=== PATIENT | male | born 1935 | race Caucasian/White ===

== ENCOUNTER → 2017-11-10 | Outpatient (CLI) | payer MEDICARE, BC ==
[~2017-11-10] MED LIST: ACYCLOVIR PO; ASPIR-LOW81 MG PO; ASPIRIN E.C. 8181 MG PO; ATENOLOL25 MG PO; ATORVASTATIN PO; AVODART 0.5MG0.5 MG PO; CARDENE 20MG CA20 M1 PO; CENTRUM SILVER1 TA1 PO; CEPHALEXIN500 M1 PO; CLEOCIN HCL300 MG PO; COQ(10)1010 MG PO; FLOMAX 0.40.4 MG/CAP PO; FLOMAX0.4 MG PO; FLONASE NASAL S16 GM NS; FUROSEMIDE20 MG PO; HYGROTON25 MG PO; ISOSORBIDE30 MG PO; LASIX; NIASPAN750 MG PO; NORCO 325 MG-51 TAB PO; NORCO 325 MG-7.1 TAB PO; RESTASIS0.05% OP; SILVADENE 400G400 GM TP; SINGULAIR 110 MG/TAB PO; SINGULAIR10 MG PO; SYSTANE LUBRICAN5 ML OP; VICODIN 5/5001 UDTAB PO; ZADITOR 5 ML5 ML OP; ZOFRAN ODT4 MG PO
== END ==
LOC: COL.PUL 13:18
DX: R06.02 Shortness of breath (principal)

== ENCOUNTER 2020-11-28 12:56 | Day surgery (SDC) | payer MEDICARE, BC ==
[~2020-11-28] VITALS: Ht 177.8 cm; Wt 93.4 kg
[2020-11-28] VITALS (9 sets, daily range): BP systolic 117–156; BP diastolic 63–97; PULSE 76–96; TEMP 97.4–98.1
[2020-11-28] MEDS ORDERED: HYGROTON 2525 MG/TAB PO (13:57)
[2020-11-28] MEDS ORDERED: K-TAB20 PO (13:58)
[2020-11-28] MEDS ORDERED: FLOMAX 0.40.4 MG/CAP PO (13:59)
[2020-11-28] MEDS ORDERED: DEMADEX 20MG20 M1 PO (13:59)
[2020-11-28] MEDS ORDERED: FAMVIR250 MG PO (14:01)
[2020-11-28] MEDS ORDERED: ZYRTEC 10MG10 MG PO (14:01)
[2020-11-28] MEDS ORDERED: LIPITOR20 MG PO (14:02)
[2020-11-28] MEDS ORDERED: LIPITOR 40MG TA40 MG PO (14:02)
[2020-11-28] MEDS ORDERED: IMDUR 30MG30 MG/TAB PO (14:03)
[2020-11-28] MEDS ORDERED: BLINK TEARS15 ML OP (14:06)
[2020-11-28] MEDS ORDERED: ZADITOR 5 ML5 ML OP (14:09)
[2020-11-28] MEDS ORDERED: FLONASEALLERGY NS (14:14)
[2020-11-28] MEDS ORDERED: COENZYME Q-10100 M1 PO ×2 (14:15→14:16)
[2020-11-28] MEDS ORDERED: ASPIRIN 81M81 MG/TA2 PO ×2 (14:15→14:25)
[2020-11-28] MEDS ORDERED: RESTASIS MULTI5.5 ML OP (14:17)
[2020-11-28] MEDS ORDERED: AVODART 0.5MG0.5 MG PO (14:18)
[2020-11-28] MEDS ORDERED: PYRIDIUM 100MG100 MG PO (16:29)
[2020-11-28] MEDS ORDERED: NORCO 325 MG-51 TAB PO (16:30)
--- NOTE | 2020-11-28 17:30 | NUR ---
Pt arrived to the floor from PACU. He is alert and oriented with no pain complaints. Meyer with CBI running at moderate rate, output clear, CBI slowed down. Ordered pt a clear liquid tray. is present at the bedside. Oriented pt to the room, no other needs, will continue to monitor
--- NOTE | 2020-11-28 19:00 | NUR ---
Output continues to be clear, running at slow rate. Ice to scrotum, tolerated a clear liquid tray, general tray ordered for patient. VSS, no pain complaints. Informed pt if he feels the urge to urinate, to notify nursing. Report given
--- NOTE | 2020-11-28 21:00 | NUR ---
Patient resting in bed. CBI running slow and has light pink drainage. Patient has no complaints of pain at this time. Fluids infusing. Patient states he feels like he needs to pee. Abdomen is not distended and is soft. No other needs. Call light in reach.
[2020-11-29 00:02] VITALS: BP 107/65; PULSE 63; TEMP 97.9
[2020-11-29 04:29] VITALS: BP 103/55; PULSE 70; TEMP 97.8
--- NOTE | 2020-11-29 05:47 | NUR ---
Patient having bloody drainage from hernando drain. Soiled gauze was replaced and new mesh underwear put on. Ice was applied to site throughout the night.
[2020-11-29 07:18] VITALS: BP 107/57; PULSE 70; TEMP 97.9
--- NOTE | 2020-11-29 10:32 | NUR ---
DR. JEFFRIES IN TO SEE PT THIS AM NEW ORDERS RECIEVED ZHANG CATHETER REMOVED BY GLENNA DENNIS STUDENT. PT TOLERATED WELL. SIX BOTTLE ROUTINE STARTED. DRAIN FOR HYDROCELE REMOVED BY PHYSICIAN AND PA STUDENT. PT TOLERATED WELL, CLEAN GAUZE APPLIED.
[2020-11-29 11:19] VITALS: BP 103/54; PULSE 68; TEMP 97.6
--- NOTE | 2020-11-29 11:26 | NUR ---
ESTELA met with the patient and his , Pushpa (ph#[phone]), to discuss discharge plan. The patient lives in [place] with his . He reports independence with ADLs and does not have any DME. The patient's PCP is Dr. Cricket Goodman and he receives his medications from [facility]. He reports no difficulties obtaining his meds. The patient's DPOA-HC is in EMR and it designates his . The patient plans to return home with his upon discharge. No additional needs at this time.
--- NOTE | 2020-11-29 16:57 | NUR ---
DISCHARGE INSTRUCTIONS PROVIDED TO PT AND . PT LEFT FLOOR AMBULATORY.
[2021-05-24] MEDS ORDERED: THE MEDICINE S200 M2 PO (09:27)
== END 2020-11-29 15:05 | disposition home or self-care (01) ==
LOC: SURG 12:56 → SDCO 12:56 → SURG 17:25 → SDCO 18:30 → SURG 11-29 15:05 → SDCO 11-29 15:05
DX: N40.1 Benign prostatic hyperplasia with lower urinary tract symptoms (principal); N39.43 Post-void dribbling; R39.12 Poor urinary stream; R39.14 Feeling of incomplete bladder emptying; R35.1 Nocturia; N43.3 Hydrocele, unspecified; G47.33 Obstructive sleep apnea (adult) (pediatric); E78.5 Hyperlipidemia, unspecified; I10 Essential (primary) hypertension; Z20.822 Contact with and (suspected) exposure to COVID-19; Z79.899 Other long term (current) drug therapy; Z79.82 Long term (current) use of aspirin; Z87.891 Personal history of nicotine dependence; H04.129 Dry eye syndrome of unspecified lacrimal gland
CPT/HCPCS: OP; J0690; J1100; J1170; J2250; J2405; J2704; J3010; J3480; J7120

== ENCOUNTER 2021-04-23 18:47 | Observation (INO) | payer MEDICARE, BC ==
[~2021-04-23] VITALS: Ht 177.8 cm; Wt 86.8 kg
[~2021-04-23 18:47] MED LIST changes: +ASPIRIN 81M81 MG/TA2 PO; +BLINK TEARS15 ML OP; +COENZYME Q-10100 M1 PO; +DEMADEX 20MG20 M1 PO; +FAMVIR250 MG PO; +FLONASEALLERGY NS; +HYGROTON 2525 MG/TAB PO; +IMDUR 30MG30 MG/TAB PO; +K-TAB20 PO; +LIPITOR 40MG TA40 MG PO; +LIPITOR20 MG PO; +PYRIDIUM 100MG100 MG PO; +RESTASIS MULTI5.5 ML OP; +ZYRTEC 10MG10 MG PO
[2021-04-23 20:03] LABS: BASO % 0.5 % (0.0-2.0); EOS # 0.3 (0.0-0.7); GRAN # 5.6 (1.4-6.5); HEMATOCRIT 43.2 % (42.0-52.0); HEMOGLOBIN 14.7 g/dl (13.5-18.0); LYMPH % 23.9 % (20.0-51.0); MEAN CELL VOLUME 89 fl (80.0-100.0); MEAN CORPUSCULAR HEMOGLOBIN 30 pg (27.0-31.0); MEAN CORPUSCULAR HGB CONC 34 g/dl (33.0-37.0); MONO # 0.5 (0.1-0.6); PLATELET COUNT 191 K/mm3 (130-400); RED BLOOD COUNT 4.85 M/mm3 (4.20-5.60); REDCELL DISTRIBUTION WIDTH-CV 13.3 % (11.5-14.5)
[2021-04-23 20:08] LABS: INR 1.1 (0.8-3.0); PROTHROMBIN TIME 11.8 SECONDS (9.7-12.8)
[2021-04-23 20:11] LABS: ALANINE AMINOTRANSFERASE 23 U/L (4-49); ALBUMIN 4.2 gm/dL (3.5-5.0); ALKALINE PHOSPHATASE 89 U/L (50-136); ANION GAP 10 mmol/L (7-16); AST,SGOT 32 U/L (15-37); BILIRUBIN,TOTAL 1.1 mg/dL (0.0-1.0); BLOOD UREA NITROGEN 26 mg/dL (9-20); CALCIUM 9.4 mg/dL (8.4-10.2); CARBON DIOXIDE 29 mmol/L (22-30); CHLORIDE 100 mmol/L (98-107); CREATININE, serum 1.23 (0.66-1.25); GLUCOSE 108 mg/dL (74-106); POTASSIUM 3.4 mmol/L (3.4-5.0); SODIUM 138 mmol/L (137-145); TOTAL PROTEIN 7.9 gm/dL (6.4-8.2)
[2021-04-23 20:41] LABS: COLLECTION METHOD CLEAN CATCH
[2021-04-23 20:53] LABS: TROPONIN-I < 0.012 ng/mL (0.000-0.035)
[2021-04-23 20:56] LABS: MUCOUS Present /lpf; PH 6 (5-8); SQUAMOUS EPITHELIAL 0-2 /hpf; URINE APPEARANCE Clear; URINE BACTERIA None Seen /hpf; URINE BILIRUBIN Negative (NEGATIVE); URINE BLOOD Negative (NEGATIVE); URINE COLOR Yellow; URINE GLUCOSE Negative (NEGATIVE); URINE KETONE Negative (NEGATIVE); URINE LEUKOCYTE ESTERASE Negative (NEGATIVE); URINE NITRATE Negative (NEGATIVE); URINE PROTEIN(semi-quant) Negative (NEGATIVE); URINE RBC 0-2 /hpf; URINE UROBILINOGEN Negative (NEGATIVE)
[2021-04-23] MEDS ORDERED: ASPIRIN 81M81 MG/TA2 PO (22:43)
[2021-04-24] VITALS (8 sets, daily range): BP systolic 105–121; BP diastolic 45–68; PULSE 62–93; TEMP 97.1–98.1
--- NOTE | 2021-04-24 03:05 | NUR ---
PT ARRIVES VIA W/C FROM ED. IS ALERT AND ORIENTED X4.
--- NOTE | 2021-04-24 06:15 | NUR ---
PATIENT IS LAYING IN BED. HAS NOT COMPLAINED OF PAIN THROUGHOUT THE DURATION OF THE NIGHT. NO FURTHER NEEDS AT THIS TIME. WILL REPORT TO DAY SHIFT.
[2021-04-24 07:20] LABS: BASO % 0.3 % (0.0-2.0); EOS # 0.1 (0.0-0.7); EOS % 1.5 % (0-4.0); GRAN % 69.2 % (42.2-75.2); HEMATOCRIT 37.2 % (42.0-52.0); LYMPH # 1.5 (1.2-3.4); LYMPH % 20.1 % (20.0-51.0); MEAN CELL VOLUME 91 fl (80.0-100.0); MEAN CORPUSCULAR HEMOGLOBIN 31 pg (27.0-31.0); MEAN CORPUSCULAR HGB CONC 34 g/dl (33.0-37.0); MEAN PLATELET VOLUME 9.2 fl (7.4-10.4); MONO # 0.6 (0.1-0.6); MONO % 8.6 % (1.7-9.3); PLATELET COUNT 180 K/mm3 (130-400); RED BLOOD COUNT 4.07 M/mm3 (4.20-5.60); REDCELL DISTRIBUTION WIDTH-CV 13.4 % (11.5-14.5)
[2021-04-24 07:22] LABS: HEMOGLOBIN 12.5 g/dl (13.5-18.0)
[2021-04-24 07:54] LABS: CALCIUM 8.8 mg/dL (8.4-10.2); CREATININE, serum 1.11 (0.66-1.25); POTASSIUM 3.8 mmol/L (3.4-5.0)
--- NOTE | 2021-04-24 08:00 | NUR ---
Patient up to restroom with SBA, steady gait. Denies pain at this time. Patient has abrasions to left knee and elbow. As well as abrasions to face with dressings over bridge of nose and lip. Gauze dressing to left upper arm for skin tear. Fluids infusing per orders. Denies needs at this time. No further needs at this time.
[2021-04-24] MEDS ORDERED: FLOMAX 0.40.4 MG/CAP PO (12:32)
[2021-04-24] MEDS ORDERED: HYGROTON 2525 MG/TAB PO (14:33)
[2021-04-24] MEDS ORDERED: CLEOCIN HCL300 MG PO (14:38)
--- NOTE | 2021-04-24 15:22 | NUR ---
plant operations worker met with patient to discuss discharge plan. Patient lives at home with his by [place]. Patient reports to being fully independent and does not use any medical equipment to assist with mobility. PCP is Dr. Goodman and uses [facility] for a pharmacy. Patient states he has a DPOA-HC established and the hospital should have a copy on file. Patient states he has biked at least 5 miles a day for the past 40 years. Has a daughter that lives in [place] and does a lot for him and his . *Discahrge plan: Home with *
--- NOTE | 2021-04-24 18:27 | NUR ---
Patient doing well throughout the day, spouse at bedside today. Has been up to recliner and ambulating in room with steady gait. Dressing to nose and lip changed this afternoon, vasaline gauze and non adhesive dressing placed. Denies needs at this time.
--- NOTE | 2021-04-24 21:50 | NUR ---
Pt. sitting up in bed at this time. Pt. is A&OX3, assessment complete. INT to rt. forearm patent. Dressing to nose CDI. Pt. denies pain or other needs, call light within reach.
[2021-04-25 04:27] VITALS: BP 114/48; PULSE 64; TEMP 98.5
[2021-04-25 07:19] LABS: BASO % 0.5 % (0.0-2.0); EOS # 0.2 (0.0-0.7); EOS % 3.7 % (0-4.0); GRAN # 3.6 (1.4-6.5); GRAN % 60.4 % (42.2-75.2); HEMOGLOBIN 11.7 g/dl (13.5-18.0); LYMPH # 1.6 (1.2-3.4); LYMPH % 26.1 % (20.0-51.0); MEAN CELL VOLUME 90 fl (80.0-100.0); MEAN CORPUSCULAR HEMOGLOBIN 31 pg (27.0-31.0); MEAN CORPUSCULAR HGB CONC 34 g/dl (33.0-37.0); MEAN PLATELET VOLUME 9.3 fl (7.4-10.4); MONO # 0.5 (0.1-0.6); MONO % 9.1 % (1.7-9.3); PLATELET COUNT 165 K/mm3 (130-400); REDCELL DISTRIBUTION WIDTH-CV 13.6 % (11.5-14.5)
[2021-04-25 07:21] LABS: HEMATOCRIT 34.1 % (42.0-52.0)
[2021-04-25 07:24] VITALS: BP 107/52; PULSE 68; TEMP 97.6
[2021-04-25 07:43] LABS: CALCIUM 8.9 mg/dL (8.4-10.2); CREATININE, serum 1.01 (0.66-1.25)
[2021-04-25] MEDS ORDERED: HYGROTON 2525 MG/TAB PO (08:48)
--- NOTE | 2021-04-25 10:20 | NUR ---
Patient doing well this AM. Up ambulating in room with steady gait. Spouse at bedside. Discharge education provided to patient. Educated on when to call provider and all follow up appointments. Patient educated on medication changes. All questions answered. INT discontinued, catheter tip intact. Patient out by wheelchair with surgical staff.
[2021-04-25 17:31] LABS: TB GOLD INTERPRETATION Negative (Negative)
[2021-05-01 09:00] LABS: COCCIDIOIDES AB IGG Negative (Negative); COCCIDIOIDES AB IGM Negative (Negative); COCCIDIOIDES CF Negative (Negative)
[2021-05-24] MEDS ORDERED: THE MEDICINE S200 M2 PO (09:27)
== END 2021-04-25 10:20 | disposition home or self-care (01) ==
LOC: COL.ER 18:47 → SURG 20:33
PROVIDERS: Emergency Medicine; Physician Assistant; Student in an Organized Health Care Education/Training Program; ADMIT Internal Medicine
DX: R55 Syncope and collapse (principal); S02.2XXA Fracture of nasal bones, initial encounter for closed fracture; S01.21XA Laceration without foreign body of nose, initial encounter; S01.81XA Laceration without foreign body of other part of head, initial encounter; E78.5 Hyperlipidemia, unspecified; E87.6 Hypokalemia; I10 Essential (primary) hypertension; R91.8 Other nonspecific abnormal finding of lung field; G47.33 Obstructive sleep apnea (adult) (pediatric); Z20.822 Contact with and (suspected) exposure to COVID-19; N40.0 Benign prostatic hyperplasia without lower urinary tract symptoms; Z66 Do not resuscitate; V19.9XXA Pedal cyclist (driver) (passenger) injured in unspecified traffic accident, initial encounter; Y93.55 Activity, bike riding; Y92.838 Other recreation area as the place of occurrence of the external cause; Z79.899 Other long term (current) drug therapy; Z87.891 Personal history of nicotine dependence; Z23 Encounter for immunization
CPT/HCPCS: G0378; J0696; J3475; J7030

== ENCOUNTER 2021-05-29 09:05 | Outpatient (CLI) | payer MEDICARE, BC ==
[2021-05-29] VITALS (18 sets, daily range): BP systolic 115–182; BP diastolic 50–93; PULSE 61–75; TEMP 97.5
[~2021-05-29] VITALS: Ht 177.8 cm; Wt 94.4 kg
[~2021-05-29 09:05] MED LIST changes: +THE MEDICINE S200 M2 PO
--- NOTE | 2021-05-29 09:55 | NUR ---
pt to ct per wheelchair, pt laying in supine position on ct table, monitors applied and O2 on at 2l/nc.
--- NOTE | 2021-05-29 10:10 | NUR ---
Pt rescanned after changed position.
--- NOTE | 2021-05-29 10:35 | NUR ---
Specimens obtained by Dr Brewster and placed in formalin. Specimen labeled.
== END 2021-05-29 13:50 | disposition home or self-care (01) ==
LOC: COL.RAD 09:05
DX: J98.4 Other disorders of lung (principal); J84.10 Pulmonary fibrosis, unspecified
CPT/HCPCS: J3010

== ENCOUNTER → 2021-10-22 | Outpatient (CLI) | payer MEDICARE, BC ==
[2021-10-22 15:22] LABS: HEMATOCRIT 39.6 % (42.0-52.0); HEMOGLOBIN 13.8 g/dl (13.5-18.0); MEAN CELL VOLUME 85 fl (80.0-100.0); MEAN CORPUSCULAR HEMOGLOBIN 30 pg (27-31); MEAN CORPUSCULAR HGB CONC 35 g/dl (33.0-37.0); MEAN PLATELET VOLUME 9.1 fl (7.4-10.4); PLATELET COUNT 104 K/mm3 (130-400); RED BLOOD COUNT 4.68 M/mm3 (4.20-5.60); REDCELL DISTRIBUTION WIDTH-CV 13.3 % (11.5-14.5)
[2021-10-22 15:37] LABS: ALBUMIN 3.2 gm/dL (3.4-4.8); BILIRUBIN,TOTAL 1.6 mg/dL (0.2-1.2); CALCIUM 9.1 mg/dL (8.4-10.2); CREATININE, serum 1.14 mg/dL (0.72-1.25); POTASSIUM 3.5 mmol/L (3.5-4.5); TOTAL PROTEIN 6.6 gm/dL (6.2-8.1)
[2021-10-22 15:53] LABS: BAND 4 % (0-10); EOSINOPHIL 4 % (0-4); LYMPHOCYTE 67 % (20.0-51.0); NEUTROPHILS 20 % (42.0-75.2)
[2021-10-22 15:54] LABS: PLATELET ESTIMATE DECREASED (NORMAL)
== END ==
LOC: COL.LAB 14:54
DX: C34.91 Malignant neoplasm of unspecified part of right bronchus or lung (principal)

== ENCOUNTER → 2021-10-29 | Outpatient (CLI) | payer MEDICARE, BC ==
[2021-10-29 08:44] LABS: BASO % 0.4 % (0.0-2.0); EOS # 0.1 K/mm3 (0.0-0.7); EOS % 2.3 % (0.0-4.0); GRAN % 39.3 % (42.2-75.2); HEMOGLOBIN 11.6 g/dl (13.5-18.0); LYMPH # 1.2 K/mm3 (1.2-3.4); LYMPH % 47.5 % (20.0-51.0); MEAN CELL VOLUME 85 fl (80.0-100.0); MEAN CORPUSCULAR HEMOGLOBIN 29 pg (27-31); MEAN CORPUSCULAR HGB CONC 34 g/dl (33.0-37.0); MEAN PLATELET VOLUME 9.9 fl (7.4-10.4); MONO # 0.3 K/mm3 (0.1-0.6); MONO % 9.7 % (1.7-9.3); PLATELET COUNT 82 K/mm3 (130-400); RED BLOOD COUNT 3.97 M/mm3 (4.20-5.60); REDCELL DISTRIBUTION WIDTH-CV 13.1 % (11.5-14.5)
[2021-10-29 08:47] LABS: HEMATOCRIT 33.9 % (42.0-52.0)
[2021-10-29 08:59] LABS: ALBUMIN 2.8 gm/dL (3.4-4.8); BILIRUBIN,TOTAL 0.6 mg/dL (0.2-1.2); CALCIUM 8.2 mg/dL (8.4-10.2); CREATININE, serum 0.78 mg/dL (0.72-1.25); MAGNESIUM 1.6 mg/dL (1.6-2.6); POTASSIUM 3.5 mmol/L (3.5-4.5); TOTAL PROTEIN 6.4 gm/dL (6.2-8.1)
== END ==
LOC: COL.LAB 08:04
DX: C34.91 Malignant neoplasm of unspecified part of right bronchus or lung (principal)

== ENCOUNTER → 2022-02-20 | Outpatient (CLI) | payer MEDICARE, BC | LOC: COL.RAD 13:50 | DX: M50.321 Other cervical disc degeneration at C4-C5 level (principal); M48.02 Spinal stenosis, cervical region; M47.812 Spondylosis without myelopathy or radiculopathy, cervical region; C34.91 Malignant neoplasm of unspecified part of right bronchus or lung; M43.6 Torticollis ==

== ENCOUNTER → 2022-09-19 | Outpatient (CLI) | payer MEDICARE, BC | LOC: COL.LAB 14:16 | DX: Z01.89 Encounter for other specified special examinations (principal) ==

== ENCOUNTER 2022-09-20 08:40 | Emergency (ER) | payer MEDICARE, BC ==
[~2022-09-20] VITALS: Ht 170.2 cm; Wt 72.7 kg
[2022-09-20 08:48] VITALS: TEMP 98.5
[2022-09-20 09:44] LABS: BASO % 0.1 % (0.0-2.0); EOS # 0.8 K/mm3 (0.0-0.7); EOS % 7.6 % (0.0-4.0); GRAN # 7.5 K/mm3 (1.4-6.5); GRAN % 76.1 % (42.2-75.2); HEMOGLOBIN 11.2 g/dl (13.5-18.0); LYMPH # 1.3 K/mm3 (1.2-3.4); MEAN CELL VOLUME 93 fl (80.0-100.0); MEAN CORPUSCULAR HEMOGLOBIN 28 pg (27-31); MEAN CORPUSCULAR HGB CONC 30 g/dl (33.0-37.0); MEAN PLATELET VOLUME 9.3 fl (7.4-10.4); MONO # 0.3 K/mm3 (0.1-0.6); MONO % 3.1 % (1.7-9.3); PLATELET COUNT 269 K/mm3 (130-400); RED BLOOD COUNT 3.95 M/mm3 (4.20-5.60)
[2022-09-20 09:49] LABS: HEMATOCRIT 36.9 % (42.0-52.0)
[2022-09-20 10:05] LABS: ALANINE AMINOTRANSFERASE 20 U/L (0-55); ALBUMIN 2.1 gm/dL (3.4-4.8); ALKALINE PHOSPHATASE 66 U/L (40-150); ANION GAP 11 mmol/L (7-16); AST,SGOT 22 U/L (5-34); BILIRUBIN,TOTAL 0.6 mg/dL (0.2-1.2); BLOOD UREA NITROGEN 26 mg/dL (8-26); C-REACTIVE PROTEIN 6.73 mg/dL (0.00-0.50); CARBON DIOXIDE 28 mmol/L (23-31); CHLORIDE 101 mmol/L (98-107); CREATININE, serum 0.71 mg/dL (0.72-1.25); GLUCOSE 137 mg/dL (70-99); LIPASE 45 U/L (8-78); POTASSIUM 4.5 mmol/L (3.5-4.5); SODIUM 140 mmol/L (136-145); TOTAL PROTEIN 6.9 gm/dL (6.2-8.1)
[2022-09-20 10:09] LABS: ERYTHROCYTE SEDIMENTATION RATE 81 mm/hr (0-30)
[2022-09-20 10:11] LABS: TROPONIN-I < 0.010 ng/mL (0.00-0.033)
[2022-09-20 13:50] VITALS: BP 112/58; PULSE 87
== END 2022-09-20 13:50 | disposition short-term general hospital (02) ==
LOC: COL.ER 08:40
PROVIDERS: Emergency Medicine
DX: J18.9 Pneumonia, unspecified organism (principal); J86.9 Pyothorax without fistula; C34.90 Malignant neoplasm of unspecified part of unspecified bronchus or lung; R70.0 Elevated erythrocyte sedimentation rate; Z86.16 Personal history of COVID-19; Z20.822 Contact with and (suspected) exposure to COVID-19
CPT/HCPCS: J2543; J3370; J7050

== ENCOUNTER 2022-10-20 09:50 | Emergency (ER) | payer MEDICARE, BC ==
[~2022-10-20] VITALS: Ht 170.2 cm; Wt 72.7 kg
[2022-10-20 09:56] VITALS: BP 136/70; TEMP 97.4
[2022-10-20 12:15] VITALS: PULSE 97
== END 2022-10-20 12:16 | disposition home or self-care (01) ==
LOC: COL.ER 09:50
DX: K94.23 Gastrostomy malfunction (principal)

== ENCOUNTER 2023-07-25 10:21 | Emergency (ER) | payer MEDICARE, BC ==
[~2023-07-25] VITALS: Ht 170.2 cm; Wt 72.7 kg
[~2023-07-25 10:21] MED LIST changes: +ALL DAY ALLERGY10 M3 PO; +DIFICID200 MG PO; +IPRATROPIUM BROM3 M1 IH; +MELATONIN5 M1 PO; +MIRALAX PA17 GM/Dose PO; +PEPCID 20MG TAB20 MG PO; +PROAIR HFA0.09 MG/AC IH; +RESTASIS 60VL OU; +RESTASIS0.05% OU; +SENNA-S 50 MG-81 TAB PO; +SEROQUEL 2525 MG/TAB PO; +SYSTANE0.3% OU; +TYLENOL 500MG500 MG PO; +ZOFRAN ODT4 MG BC
[2023-07-25 10:29] VITALS: TEMP 97.5
[2023-07-25 12:17] LABS: BASO # 0.1 K/mm3 (0.0-0.2); BASO % 0.6 % (0.0-2.0); EOS # 0.3 K/mm3 (0.0-0.7); EOS % 3.1 % (0.0-4.0); GRAN # 6.6 K/mm3 (1.4-6.5); GRAN % 75.4 % (42.2-75.2); HEMATOCRIT 38.2 % (42.0-52.0); HEMOGLOBIN 12.3 g/dl (13.5-18.0); LYMPH # 1.2 K/mm3 (1.2-3.4); LYMPH % 13.4 % (20.0-51.0); MEAN CELL VOLUME 89 fl (80.0-100.0); MEAN CORPUSCULAR HEMOGLOBIN 29 pg (27-31); MEAN CORPUSCULAR HGB CONC 32 g/dl (33.0-37.0); MEAN PLATELET VOLUME 10.7 fl (7.4-10.4); MONO # 0.6 K/mm3 (0.1-0.6); PLATELET COUNT 192 K/mm3 (130-400); RED BLOOD COUNT 4.31 M/mm3 (4.20-5.60); REDCELL DISTRIBUTION WIDTH-CV 14.4 % (11.5-14.5)
[2023-07-25 12:23] LABS: ALBUMIN 2.2 gm/dL (3.4-4.8); BILIRUBIN,TOTAL 0.5 mg/dL (0.2-1.2); CALCIUM 8.9 mg/dL (8.4-10.2); CREATININE, serum 0.76 mg/dL (0.72-1.25); POTASSIUM 4.8 mmol/L (3.5-4.5); TOTAL PROTEIN 6.7 gm/dL (6.2-8.1)
[2023-07-25 12:33] LABS: TROPONIN-I 0.338 ng/mL (0.00-0.033)
[2023-07-25 13:52] LABS: COLLECTION METHOD CLEAN CATCH
[2023-07-25 14:15] LABS: PH 6.5 (5.0-8.5); URINE APPEARANCE Clear (CLEAR/HAZY); URINE COLOR Yellow (YELLOW); URINE GLUCOSE Negative (NEGATIVE); URINE KETONE TRACE (NEGATIVE); URINE PROTEIN(semi-quant) 1+ (NEGATIVE)
[2023-07-25 14:16] LABS: MUCOUS Present (NOT PRESENT); SQUAMOUS EPITHELIAL 0-2 /hpf (0-10); URINE BLOOD Negative (NEGATIVE); URINE NITRATE Negative (NEGATIVE); URINE RBC 0-2 /hpf (0-2); URINE WBC 0-2 /hpf (0-2)
[2023-07-25] MEDS ORDERED: TYLENOL W/COD1 UDTAB PO (15:03)
[2023-07-25 17:57] VITALS: BP 121/71; PULSE 91
== END 2023-07-25 17:15 | disposition short-term general hospital (02) ==
LOC: COL.ER 10:21
PROVIDERS: Emergency Medicine
DX: C34.92 Malignant neoplasm of unspecified part of left bronchus or lung (principal); R79.89 Other specified abnormal findings of blood chemistry; R09.02 Hypoxemia; Z90.2 Acquired absence of lung [part of]; Z87.891 Personal history of nicotine dependence
CPT/HCPCS: J1200; J7120; J7512; Q9967